=== PATIENT | female | born 2000 | race Caucasian/White ===

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

== ENCOUNTER 2018-03-18 11:55 | Emergency (ER) | payer OTHER ==
[~2018-03-18] VITALS: Ht 160 cm; Wt 59.1 kg
[~2018-03-18 11:55] MED LIST changes: +PRENATAL VITAM1 EAC7 PO
[2018-03-18] MEDS ORDERED: ROBITUSSIN DM118 ML PO (13:19)
[2018-03-18] MEDS ORDERED: DELTASONE20 M1 PO (13:19)
[2018-03-18] MEDS ORDERED: CLARITIN,ALAVAR10 MG PO (13:20)
[2018-03-18 13:40] VITALS: BP 106/66
== END 2018-03-18 14:08 | disposition home or self-care (01) ==
LOC: EME 11:55
DX: J06.9 Acute upper respiratory infection, unspecified (principal)
CPT/HCPCS: 87651 90; 99281; 99285